=== PATIENT | female | born 1930 | race African-American/Black ===

== ENCOUNTER 2019-03-12 14:10 | Inpatient (IN) | payer BC, OTHER ==
[2019-03-12 14:16] VITALS: BMI 21.4
[2019-03-12 16:13] LABS: BASO % 0.9 % (0-2.0); EOS % 0.5 % (0-4.5); HEMATOCRIT 37.3 % (32.4-45.2); HEMOGLOBIN 12.4 GM/dL (10.7-15.3); LYMPH % 16.3 % (8-40); MCH 28.8 pg (25.7-33.7); MCHC 33.4 g/dl (32.0-36.0); MEAN CELL VOLUME 86.4 fl (80-96); MEAN PLT VOLUME 6.9 fl (7.5-11.1); MONO % 7.2 % (3.8-10.2); NEUT % 75.1 % (42.8-82.8); PLATELET COUNT 382 K/MM3 (134-434); RBC 4.31 M/mm3 (3.60-5.2); RDW 14.3 % (11.6-15.6); WHITE BLOOD COUNT 6.7 K/mm3 (4.0-10.0)
[2019-03-12 16:35] LABS: INR 1.04 (0.83-1.09); PROTHROMBIN TIME (PATIENT) 12.3 SEC (9.7-13.0)
[2019-03-12 16:38] LABS: ACTIVATED PTT 36.7 SECONDS (25.2-36.5)
--- NOTE | 2019-03-12 16:38 | PDOC ---
History of Present Illness - General History Source: Patient Exam Limitations: Clinical Condition - History of Present Illness Initial Comments: 03/12/19 16:34 Patient with no significant past medical history present with complaint of over 6 months history of growth to left breast which started as a small growth on the lateral aspect of left breast and has been getting bigger in the past 6 months. Patient reported started having mild pain in the beginning but has not had any pain while. Patient reported has not seen any doctor in over 30 years. Denies fevers, chills, weakness, cough, shortness of breath. Patient reports she has never followed up for the breast growth which has started to turned into ulcer for few months now as she was busy taking care of her family. Denies any other symptoms Timing/Duration: reports: other (6 months) <Nikko Mckenzie - Last Filed: 03/12/19 19:06> <Elizabeth Danielson - Last Filed: 03/12/19 22:18> - General Chief Complaint: Wound Stated Complaint: RT BREAST LYMPH Time Seen by Provider: 03/12/19 15:34 Past History - Past Medical History COPD: No - Psycho Social/Smoking Cessation Hx Smoking History: Current every day smoker Number of Cigarettes Smoked Daily: 5 Information on smoking cessation initiated: No <Nikko Mckenzie - Last Filed: 03/12/19 19:06> <Elizabeth Danielson - Last Filed: 03/12/19 22:18> - Past Medical History Allergies/Adverse Reactions: Allergies Allergy/AdvReac Type Severity Reaction Status Date / Time No Known Allergies Allergy Verified 03/12/19 14:16 Home Medications: Ambulatory Orders NK [No Known Home Medication] 03/12/19 Review of Systems - Review of Systems Able to Perform ROS?: Yes Is the patient limited Latvian proficient: No Constitutional: No: Chills, Fever, Malaise HEENTM: No: Symptoms Reported, See HPI, Eye Pain, Blurred Vision, Tearing, Recent change in vision, Double Vision, Cataracts, Ear Pain, Ocular Prothesis, Ear Discharge, Nose Pain, Nose Congestion, Tinnitus, Nose Bleeding, Hearing Loss , Throat Pain, Throat Swelling, Mouth Pain, Dental Problems, Difficulty Swallowing, Mouth Swelling, Other Respiratory: No: Symptoms reported, See HPI, Cough, Orthopnea, Shortness of Breath, SOB with Exertion, SOB at Rest, Stridor, Wheezing, Productive cough, Hemoptysis, Other Cardiac (ROS): No: Symptoms Reported, See HPI, Chest Pain, Edema, Irregular Heart Rate, Lightheadedness, Palpitations, Syncope, Chest Tightness, Other ABD/GI: No: Symptoms Reported, Nausea, Vomiting Musculoskeletal: Yes: Symptoms Reported, See HPI. No: Muscle Pain (left breast) Integumentary: Yes: Symptoms Reported, See HPI, Erythema (left breast), Lumps ( left breast) Neurological: No: Symptoms reported, Dizziness All Other Systems: Reviewed and Negative <Nikko Mckenzie - Last Filed: 03/12/19 19:06> *Physical Exam - Vital Signs Last Vital Signs Temp Pulse Resp BP Pulse Ox 98.8 F 124 H 18 157/76 98 03/12/19 14:12 03/12/19 14:12 03/12/19 14:12 03/12/19 14:12 03/12/19 14:12 - Physical Exam General Appearance: Yes: Nourished, Appropriately Dressed. No: Apparent Distress <Nikko Mckenzie - Last Filed: 03/12/19 19:06> - Vital Signs Last Vital Signs Temp Pulse Resp BP Pulse Ox 97.4 F L 80 18 142/59 L 98 03/12/19 19:32 03/12/19 19:32 03/12/19 19:32 03/12/19 19:32 03/12/19 19:32 <Elizabeth Danielson Erumsammiregina - Last Filed: 03/12/19 22:18> ED Treatment Course - LABORATORY CBC & Chemistry Diagram: 03/12/19 15:40 03/12/19 15:40 - ADDITIONAL ORDERS Additional order review: 03/12/19 15:40 RBC 4.31 MCV 86.4 MCHC 33.4 RDW 14.3 MPV 6.9 L Neutrophils % 75.1 Lymphocytes % 16.3 Monocytes % 7.2 Eosinophils % 0.5 Basophils % 0.9 - RADIOLOGY Radiology Studies Ordered: Category Date Time Status BREAST US LEFT LIMITED [US] Stat Ultrasound 03/12/19 16:05 Ordered <Nikko Mckenzie - Last Filed: 03/12/19 19:06> - LABORATORY CBC & Chemistry Diagram: 03/12/19 15:40 03/12/19 15:40 - ADDITIONAL ORDERS Additional order review: Laboratory Results 03/12/19 03/12/19 03/12/19 16:30 15:40 15:40 PT with INR 12.30 INR 1.04 PTT (Actin FS) 36.7 H Sodium Potassium Chloride Carbon Dioxide Anion Gap BUN Creatinine Est GFR (CKD-EPI)AfAm Est GFR (CKD-EPI)NonAf Random Glucose Lactic Acid 0.9 Calcium Total Bilirubin AST ALT Alkaline Phosphatase Total Protein Albumin Urine Color Yellow Urine Appearance Clear Urine pH 5.5 Ur Specific [place] 1.007 L Urine Protein Negative Urine Glucose (UA) Negative Urine Ketones Negative Urine Blood 1+ H Urine Nitrite Negative Urine Bilirubin Negative Urine Urobilinogen 0.2 Ur Leukocyte Esterase Negative Urine WBC (Auto) 1 Urine RBC (Auto) 4 Urine Casts (Auto) 1 U Epithel Cells (Auto) 0.4 Urine Bacteria (Auto) 8.9 03/12/19 15:40 PT with INR INR PTT (Actin FS) Sodium 139 Potassium 3.7 Chloride 105 Carbon Dioxide 28 Anion Gap 6 L BUN 9.1 Creatinine 0.6 Est GFR (CKD-EPI)AfAm 95.66 Est GFR (CKD-EPI)NonAf 82.53 Random Glucose 91 Lactic Acid Calcium 9.4 Total Bilirubin 0.4 AST 23 ALT 22 Alkaline Phosphatase 117 Total Protein 7.8 Albumin 3.9 Urine Color Urine Appearance Urine pH Ur Specific [place] Urine Protein Urine Glucose (UA) Urine Ketones Urine Blood Urine Nitrite Urine Bilirubin Urine Urobilinogen Ur Leukocyte Esterase Urine WBC (Auto) Urine RBC (Auto) Urine Casts (Auto) U Epithel Cells (Auto) Urine Bacteria (Auto) 03/12/19 15:40 RBC 4.31 MCV 86.4 MCHC 33.4 RDW 14.3 MPV 6.9 L Neutrophils % 75.1 Lymphocytes % 16.3 Monocytes % 7.2 Eosinophils % 0.5 Basophils % 0.9 <Elizabeth Danielson - Last Filed: 03/12/19 22:18> Medical Decision Making - Medical Decision Making 03/12/19 16:35 Patient with no significant past medical history present with complaint of over 6 months history of growth to left breast which started as a small growth on the lateral aspect of left breast and has been getting bigger in the past 6 months. Patient reported started having mild pain in the beginning but has not had any pain while. Patient reported has not seen any doctor in over 30 years. Denies fevers, chills, weakness, cough, shortness of breath. Patient reports she has never followed up for the breast growth which has started to turned into ulcer for few months now as she was busy taking care of her family. Denies any other symptoms Exam significant for 6 cm meter by 7 cm mass to left upper outer quadrant of left breast with 9 cm x 9 similar hard induration with enlarged left breast compared to right breast with multiple areas of skin erythema. Mass ulcerated with necrotic necrotic tissue to left breast. No active discharge or bleeding from site. Symptoms likely breast mass suspicious for go cancer. Patient tachycardic to 124. Will do septic work-up and left breast ultrasound. Will likely admit patient to hospital for work-up of cancer. <Nikko Mckenzie - Last Filed: 03/12/19 19:06> - Medical Decision Making agree with RAMSES Mckenzie with workup, HPI/Physical exam reviewed the note in its entirety I also eval the patient at bedside, VS notable for tachy, no fever, no systemic findings left breast mass x 6-8 months, not seen PCP in long time. 9x9 cm firm immobile mass at 1-2 oclock position of left breast overlying irregular ulcerative mass and very malodorous ultrasound suspicion for malignancy, will need biopsy/excision and surgical eval admission recommended, as possibly with superimposed infection as well 03/12/19 22:16 <Elizabeth Danielson - Last Filed: 03/12/19 22:18> Discharge - Discharge Information Problems reviewed: Yes - Admission Yes <Nikko Mckenzie - Last Filed: 03/12/19 19:06> <Elizabeth Danielson - Last Filed: 03/12/19 22:18> - Discharge Information Clinical Impression/Diagnosis: Left breast mass Condition: Stable
[2019-03-12 16:42] LABS: ALBUMIN 3.9 g/dl (3.4-5.0); BILIRUBIN,TOTAL 0.4 mg/dL (0.2-1); BLOOD UREA NITROGEN 9.1 mg/dL (7-18); CALCIUM 9.4 mg/dL (8.5-10.1); CREATININE 0.6 mg/dL (0.55-1.3); POTASSIUM 3.7 mmol/L (3.5-5.1); TOT PROT 7.8 g/dl (6.4-8.2)
[2019-03-12 17:50] LABS: EPI CELLS 0.4 /HPF (0-5/HPF); HYALINE CASTS 1 /lpf (0-8); PH,URINE 5.5 (5.0-8.0); URINE APPEARANCE CLEAR; URINE BACTERIA 8.9 /hpf (NEGATIVE); URINE BILIRUBIN NEGATIVE (NEGATIVE); URINE COLOR YELLOW; URINE GLUCOSE (UA) NEGATIVE (NEGATIVE); URINE KETONE NEGATIVE (NEGATIVE); URINE LEUK ESTERASE NEGATIVE (NEGATIVE); URINE NITRITE NEGATIVE (NEGATIVE); URINE PROTEIN NEGATIVE (NEGATIVE); URINE RBC 4 /hpf (0-4); URINE UROBILINOGEN 0.2 mg/dL (0.2-1.0); URINE WBC 1 /hpf (0-5)
--- NOTE | 2019-03-12 20:25 | HP ---
CHIEF COMPLAINT: Left breast mass in LUQ first noticed 7 months ago PCP: None HISTORY OF PRESENT ILLNESS: This is an 88 year old female with no significant PMH (has not seen a physician in 30 years). She presented to the ER with complaints of a left breast mass in LUQ first noticed 7 months ago. There was no inciting trauma or infection, she reports feeling a small lump that was not visible and gradually grew in size over the next few months. The mass became visible 4 month ago, and over the past 2 months has been growing more rapidly. She presented to the ER today after her daughter noticed an odor from the patient, after which she told her daughter about the mass. There has been no associated discharge, bleeding, rash , or nipple inversion. She reports some occasional fleeting, shooting pain in her breast shortly after eating, which resolves after belching. She denies fevers, chills, palpitations, chest pain, SOB, nausea, vomiting, diarrhea, constipation, dysuira, hematuria, or urgency. ER course was notable for: (1) US Breast: BI RADS category 5, biopsy suggested (2) BP 142/59 (3) UA +1 Blood Recent Travel: Denies PAST MEDICAL HISTORY: None PAST SURGICAL HISTORY: C- Sections x4 last one over 40 years ago Left ovary removed over 40 years ago Family Hx: Daughter had breast CA Social History: Smokin-4 cigarettes per day for 15 years Alcohol: denies Drugs: denies Allergies No Known Allergies Allergy (Verified 03/12/19 14:16) HOME MEDICATIONS: Home Medications Medication Instructions Recorded NK [No Known Home Medication] 03/12/19 REVIEW OF SYSTEMS CONSTITUTIONAL: Absent: fever, chills, diaphoresis, generalized weakness, malaise, loss of appetite, weight change HEENT: Absent: rhinorrhea, nasal congestion, throat pain, throat swelling, difficulty swallowing, mouth swelling, ear pain, eye pain, visual changes CARDIOVASCULAR: Absent: chest pain, syncope, palpitations, irregular heart rate, lightheadedness , peripheral edema RESPIRATORY: Absent: cough, shortness of breath, dyspnea with exertion, orthopnea, wheezing, stridor, hemoptysis GASTROINTESTINAL: Absent: abdominal pain, abdominal distension, nausea, vomiting, diarrhea, constipation, melena, hematochezia GENITOURINARY: Absent: dysuria, frequency, urgency, hesitancy, hematuria, flank pain, genital pain MUSCULOSKELETAL: Absent: myalgia, arthralgia, joint swelling, back pain, neck pain SKIN: Absent: rash, itching, pallor HEMATOLOGIC/IMMUNOLOGIC: Absent: easy bleeding, easy bruising, lymphadenopathy, frequent infections ENDOCRINE: Absent: unexplained weight gain, unexplained weight loss, heat intolerance, cold intolerance NEUROLOGIC: Absent: headache, focal weakness or paresthesias, dizziness, unsteady gait, seizure, mental status changes, bladder or bowel incontinence PSYCHIATRIC: Absent: anxiety, depression, suicidal or homicidal ideation, hallucinations. PHYSICAL EXAMINATION Vital Signs - 24 hr 03/12/19 03/12/19 03/12/19 14:12 15:45 16:36 Temperature 98.8 F 98.2 F Pulse Rate 124 H Pulse Rate [ Right Radial] Respiratory 18 Rate Blood Pressure 157/76 Blood Pressure [Right Arm] O2 Sat by Pulse 98 98 Oximetry (%) 03/12/19 19:32 Temperature 97.4 F L Pulse Rate Pulse Rate [ 80 Right Radial] Respiratory 18 Rate Blood Pressure Blood Pressure 142/59 L [Right Arm] O2 Sat by Pulse 98 Oximetry (%) GENERAL: AOx3 HEAD: Normal with no signs of trauma. EYES: Pupils equal, round and reactive to light, extraocular movements intact, sclera anicteric, conjunctiva clear. No lid lag. EARS, NOSE, THROAT: Ears normal, nares patent, oropharynx clear without exudates. Moist mucous membranes. NECK: Normal range of motion, supple without lymphadenopathy, JVD, or masses. LUNGS: Breath sounds equal, clear to auscultation bilaterally. No wheezes, and no crackles. No accessory muscle use. HEART: Regular rate and rhythm, normal S1 and S2 without murmur, rub or gallop. ABDOMEN: Soft, nontender, not distended, normoactive bowel sounds, no guarding, no rebound, no masses. No hepatomegaly or splenomegaly. MUSCULOSKELETAL: Normal range of motion at all joints. No bony deformities or tenderness. No CVA tenderness. UPPER EXTREMITIES: 2+ pulses, warm, well-perfused. No cyanosis. No clubbing. No peripheral edema. LOWER EXTREMITIES: 2+ pulses, warm, well-perfused. No calf tenderness. No peripheral edema. NEUROLOGICAL: Cranial nerves II-XII intact. Normal speech. Normal gait. PSYCHIATRIC: Cooperative. Good eye contact. Appropriate mood and affect. SKIN: Left breast enlarged with a 6x7 cm fungating, ulcerative, and necrotic LUQ mass with 9x9 cm erythematic, hard induration. No active discharge or bleeding from site. No axillary or supraclavicular lymphadenopathy noted Laboratory Results - last 24 hr 03/12/19 03/12/19 03/12/19 15:40 15:40 15:40 WBC 6.7 RBC 4.31 Hgb 12.4 Hct 37.3 MCV 86.4 MCH 28.8 MCHC 33.4 RDW 14.3 Plt Count 382 MPV 6.9 L Absolute Neuts (auto) 5.0 Neutrophils % 75.1 Lymphocytes % 16.3 Monocytes % 7.2 Eosinophils % 0.5 Basophils % 0.9 Nucleated RBC % 0 PT with INR 12.30 INR 1.04 PTT (Actin FS) 36.7 H Sodium 139 Potassium 3.7 Chloride 105 Carbon Dioxide 28 Anion Gap 6 L BUN 9.1 Creatinine 0.6 Est GFR (CKD-EPI)AfAm 95.66 Est GFR (CKD-EPI)NonAf 82.53 Random Glucose 91 Lactic Acid Calcium 9.4 Total Bilirubin 0.4 AST 23 ALT 22 Alkaline Phosphatase 117 Total Protein 7.8 Albumin 3.9 Urine Color Urine Appearance Urine pH Ur Specific [place] Urine Protein Urine Glucose (UA) Urine Ketones Urine Blood Urine Nitrite Urine Bilirubin Urine Urobilinogen Ur Leukocyte Esterase Urine WBC (Auto) Urine RBC (Auto) Urine Casts (Auto) U Epithel Cells (Auto) Urine Bacteria (Auto) 03/12/19 03/12/19 15:40 16:30 WBC RBC Hgb Hct MCV MCH MCHC RDW Plt Count MPV Absolute Neuts (auto) Neutrophils % Lymphocytes % Monocytes % Eosinophils % Basophils % Nucleated RBC % PT with INR INR PTT (Actin FS) Sodium Potassium Chloride Carbon Dioxide Anion Gap BUN Creatinine Est GFR (CKD-EPI)AfAm Est GFR (CKD-EPI)NonAf Random Glucose Lactic Acid 0.9 Calcium Total Bilirubin AST ALT Alkaline Phosphatase Total Protein Albumin Urine Color Yellow Urine Appearance Clear Urine pH 5.5 Ur Specific [place] 1.007 L Urine Protein Negative Urine Glucose (UA) Negative Urine Ketones Negative Urine Blood 1+ H Urine Nitrite Negative Urine Bilirubin Negative Urine Urobilinogen 0.2 Ur Leukocyte Esterase Negative Urine WBC (Auto) 1 Urine RBC (Auto) 4 Urine Casts (Auto) 1 U Epithel Cells (Auto) 0.4 Urine Bacteria (Auto) 8.9 ASSESSMENT/PLAN: 88F with no significant PMH (has not seen a physician in 30 years) presented to the ER with complaints of a left breast mass with fungating lesion in LUQ first noticed 7 months ago. Admitted for workup of likely Breast CA #Breast mass - Breast axilla US: Large solid left breast mass suspicious for malignancy BI RADS Category 5, suggestive of malignancy - Core biopsy ordered - Blood and urine cx ordered - Chest and abdomen CT: 1. Centrally necrotic L breast mass likely invading left pectoralis muscle 2. No evidence of disatant mets, Prominent mesentery of hepatic flexure, likely from 2/2 prominent vasculature 3. Diverticulosis - Surgery consult (Dr. Rico) for possible excision - Heme (Dr Merlos) and IR (Kd) Onc consultations ordered - CBC/CMP, Lipid panel, HbA1c, TSH, T4, Vit B12, Vit D ordered due to absence of recent records #HTN - 142/59, 140/90 - Started on Norvasc 5mg daily #Microscopic hematuria - UA +1 blood with 4 RBC - Patient asymptomatic, may repeat UA #FEN - Low Na diet #DVT - Lovenox Visit type - Emergency Visit Emergency Visit: Yes ED Registration Date: 03/12/19 Care time: The patient presented to the Emergency Department on the above date and was hospitalized for further evaluation of their emergent condition. - New Patient This patient is new to me today: Yes Date on this admission: 03/13/19 - Critical Care Critical Care patient: No ATTENDING PHYSICIAN STATEMENT I saw and evaluated the patient. I reviewed the resident's note and discussed the case with the resident. I agree with the resident's findings and plan as documented. SUBJECTIVE: OBJECTIVE: ASSESSMENT AND PLAN:
--- NOTE | 2019-03-12 21:43 | PN ---
Teaching Attending Note Name of Resident: Barry Sifuentse ATTENDING PHYSICIAN STATEMENT I saw and evaluated the patient. I reviewed the resident's note and discussed the case with the resident. I agree with the resident's findings and plan as documented. SUBJECTIVE: 88-year-old woman who does not follow with any doctors for many years presented with complaint of a Large fungating left breast lesion which she has had for several months however has neglected to seek medical attention. Denies any other Symptoms. OBJECTIVE: Last Vital Signs Temp Pulse Resp BP Pulse Ox 97.4 F L 80 18 142/59 L 98 03/12/19 19:32 03/12/19 19:32 03/12/19 19:32 03/12/19 19:32 03/12/19 19:32 GENERAL: Elderly, not in acute distress HEENT: Normocephalic, atraumatic. PERRLA, EOMI. No conjunctival pallor. Sclera are non- icteric. Moist mucous membranes. Oropharynx is clear. NECK: Supple. Full ROM. No JVD. Carotid pulses 2+ and symmetric, without bruits. No thyromegaly. No lymphadenopathy. CARDIOVASCULAR: Regular rate and rhythm. No murmurs, rubs, or gallops. Distal pulses are 2+ and symmetric. ChestDraining serosanguineous fluid, palpable left axillary lymph nodes PULMONARY: No evidence of respiratory distress. Lungs clear to auscultation bilaterally. No wheezing, rales or rhonchi. ABDOMINAL: Soft. Non-tender. Non-distended. No rebound or guarding. No organomegaly. Normoactive bowel sounds. MUSCULOSKELETAL Normal range of motion at all joints. No bony deformities or tenderness. No CVA tenderness. EXTREMITIES: No cyanosis. No clubbing. No edema. No calf tenderness. SKIN: Warm and dry. Normal capillary refill. No rashes. No jaundice. NEUROLOGICAL: PSYCHIATRIC: Cooperative. Good eye contact. Appropriate mood and affect. Imaging studies reviewed CT of chest, abdomen, pelvis with contrastlarge enhancing centrally necrotic left breast mass invading the skin and likely invading the left pectoralis muscle. Left axillary lymphadenopathy. No definitive evidence of distal mets. There is a prominence of the mesentery in the region of the hepatic flexure, likely secondary to prominent vascularity and less likely secondary to peritoneal carcinomatosis. Colonic diverticulosis. ASSESSMENT AND PLAN: 88-year-old woman with left breast mass and left axillary lymphadenopathy on CT of chest. Suspect likely malignancy however requires a biopsy for definitive diagnosis. Admit to [facility] for left breast mass biopsy Surgery evaluation for possible mass excision Heme-onc evaluation EKG #Hypertensionnot on any medications Start amlodipine 5 mg daily 2 g Sodium diet Lovenox for DVT prophylaxis
[2019-03-12] MEDS ORDERED: HEPARIN NA (PORCINE) 5,000 UNITS/ML 1ML VIAL SQ SCH (22:00)
[2019-03-12] MEDS ORDERED: HEPARIN NA (PORCINE) 5,000 UNITS/ML 1ML VIAL ONE (22:21)
[2019-03-13] MEDS ORDERED: ONDANSETRON 4 MG/2 ML VIAL IVPUSH PRN (04:29)
[2019-03-13] MEDS ORDERED: amLODIPine BESYLATE 5 MG TABLET (FP) PO SCH (10:00)
--- NOTE | 2019-03-13 10:01 | EKG ---
Test Reason : Blood Pressure : / mmHG Vent. Rate : 074 BPM Atrial Rate : 074 BPM P-R Int : 180 ms QRS Dur : 064 ms QT Int : 370 ms P-R-T Axes : 070 013 043 degrees QTc Int : 410 ms NORMAL SINUS RHYTHM WITH SINUS ARRHYTHMIA NORMAL ECG NO PREVIOUS ECGS AVAILABLE Confirmed by TERESSA DAWN MD ([id number]) on 03/13/2019 10:01:19 AM Referred By: Confirmed By:TERESSA DAWN MD
[2019-03-13 10:55] LABS: BASO % 1.3 % (0-2.0); EOS % 1.7 % (0-4.5); HEMATOCRIT 39.8 % (32.4-45.2); HEMOGLOBIN 13.1 GM/dL (10.7-15.3); LYMPH % 18.8 % (8-40); MCH 28.5 pg (25.7-33.7); MCHC 32.8 g/dl (32.0-36.0); MEAN CELL VOLUME 86.8 fl (80-96); MEAN PLT VOLUME 6.9 fl (7.5-11.1); MONO % 7.8 % (3.8-10.2); NEUT % 70.4 % (42.8-82.8); PLATELET COUNT 365 K/MM3 (134-434); RBC 4.58 M/mm3 (3.60-5.2); RDW 14.4 % (11.6-15.6); WHITE BLOOD COUNT 5.9 K/mm3 (4.0-10.0)
[2019-03-13 11:22] LABS: ALBUMIN 3.6 g/dl (3.4-5.0); BILIRUBIN,TOTAL 0.2 mg/dL (0.2-1); BLOOD UREA NITROGEN 8.4 mg/dL (7-18); CREATININE 0.7 mg/dL (0.55-1.3); POTASSIUM 3.9 mmol/L (3.5-5.1); TOT PROT 7.5 g/dl (6.4-8.2)
[2019-03-13] MEDS ORDERED: HEPARIN NA (PORCINE) 5,000 UNITS/ML 1ML VIAL SQ SCH (14:00)
--- NOTE | 2019-03-13 14:20 | CONSULT ---
Consultation: REQUESTING PROVIDER: primary team Dr Barry Sifuentes CONSULT REQUEST: We have been asked to medically evaluate this patient for ( breast mass ). HISTORY OF PRESENT ILLNESS: This is an 88 year old female with no significant PMH (has not seen a physician in 30 years). She presented to the ER with complaints of a left breast mass in LUQ first noticed 7 months ago. There was no inciting trauma or infection, she reports feeling a small lump that was not visible and gradually grew in size over the next few months. The mass became visible 4 month ago, and over the past 2 months has been growing more rapidly. She presented to the ER today after her daughter noticed an odor from the patient, after which she told her daughter about the mass. There has been no associated discharge, bleeding, rash , or nipple inversion. She reports some occasional fleeting, shooting pain in her breast shortly after eating, which resolves after belching. She denies fevers, chills, palpitations, chest pain, SOB, nausea, vomiting, diarrhea, constipation, dysuira, hematuria, or urgency. no pmhx and no recent travel or sick contact PAST SURGICAL HISTORY: C- Sections x4 last one over 40 years ago Left ovary removed over 40 years ago Family Hx: Daughter had breast CA Social History: Smokin-4 cigarettes per day for 15 years Alcohol: denies Drugs: denies Allergies No Known Allergies Allergy (Verified 03/12/19 14:16) REVIEW OF SYSTEMS:breast mass with discharged and skin thicking around , no other symptomps, some time associated with sharp brief pain PHYSICAL EXAMINATION Vital Signs - 24 hr 03/12/19 03/12/19 03/12/19 15:45 16:36 19:32 Temperature 98.2 F 97.4 F L Pulse Rate Pulse Rate [ 80 Right Radial] Respiratory 18 Rate Blood Pressure Blood Pressure 142/59 L [Right Arm] O2 Sat by Pulse 98 98 Oximetry (%) 03/13/19 03/13/19 03/13/19 00:36 05:34 08:00 Temperature 98.3 F 97.7 F Pulse Rate 77 Pulse Rate [ 85 Right Radial] Respiratory 16 18 18 Rate Blood Pressure 125/46 L Blood Pressure 131/54 L [Right Arm] O2 Sat by Pulse 100 98 97 Oximetry (%) 03/13/19 03/13/19 08:42 09:00 Temperature 98.4 F Pulse Rate 97 H Pulse Rate [ Right Radial] Respiratory 18 18 Rate Blood Pressure 136/76 Blood Pressure [Right Arm] O2 Sat by Pulse 97 Oximetry (%) GENERAL: Awake, alert, and fully oriented, in no acute distress. HEAD: Normal with no signs of trauma. EYES: Pupils equal, round and reactive to light, extraocular movements intact, EARS, NOSE, THROAT: Moist mucous membranes. NECK: Normal range of motion, supple without lymphadenopathy, LUNGS: Breath sounds equal, clear to auscultation bilaterally. No wheezes, and no crackles. No accessory muscle use. HEART: Regular rate and rhythm, normal S1 and S2 without murmur, rub or gallop. ABDOMEN: Soft, nontender, not distended, normoactive bowel sounds, longtudinal surgical scar LOWER EXTREMITIES: 2+ pulses, warm, well-perfused. No calf tenderness. No peripheral edema. NEUROLOGICAL: no focal deficit , asymmetry in her smile likely due to poor dentition . Normal speech. PSYCHIATRIC: Cooperative. SKIN: Warm, dry, normal turgor, left breast mass 10x7cm with open wound and yelowish pinky discharged covered with gauze , thick skin , orange peel signs no lymphnodes enlarged palpated in neck , submanidibullat , axillary and inguinal area Laboratory Results - last 24 hr 03/12/19 03/12/19 03/12/19 15:40 15:40 15:40 WBC 6.7 RBC 4.31 Hgb 12.4 Hct 37.3 MCV 86.4 MCH 28.8 MCHC 33.4 RDW 14.3 Plt Count 382 MPV 6.9 L Absolute Neuts (auto) 5.0 Neutrophils % 75.1 Lymphocytes % 16.3 Monocytes % 7.2 Eosinophils % 0.5 Basophils % 0.9 Nucleated RBC % 0 PT with INR 12.30 INR 1.04 PTT (Actin FS) 36.7 H Sodium 139 Potassium 3.7 Chloride 105 Carbon Dioxide 28 Anion Gap 6 L BUN 9.1 Creatinine 0.6 Est GFR (CKD-EPI)AfAm 95.66 Est GFR (CKD-EPI)NonAf 82.53 POC Glucometer Random Glucose 91 Lactic Acid Calcium 9.4 Total Bilirubin 0.4 AST 23 ALT 22 Alkaline Phosphatase 117 Total Protein 7.8 Albumin 3.9 Vitamin D Level TSH Thyroxine (T4) Urine Color Urine Appearance Urine pH Ur Specific [place] Urine Protein Urine Glucose (UA) Urine Ketones Urine Blood Urine Nitrite Urine Bilirubin Urine Urobilinogen Ur Leukocyte Esterase Urine WBC (Auto) Urine RBC (Auto) Urine Casts (Auto) U Epithel Cells (Auto) Urine Bacteria (Auto) Blood Type Antibody Screen 03/12/19 03/12/19 03/13/19 15:40 16:30 05:08 WBC RBC Hgb Hct MCV MCH MCHC RDW Plt Count MPV Absolute Neuts (auto) Neutrophils % Lymphocytes % Monocytes % Eosinophils % Basophils % Nucleated RBC % PT with INR INR PTT (Actin FS) Sodium Potassium Chloride Carbon Dioxide Anion Gap BUN Creatinine Est GFR (CKD-EPI)AfAm Est GFR (CKD-EPI)NonAf POC Glucometer 91 Random Glucose Lactic Acid 0.9 Calcium Total Bilirubin AST ALT Alkaline Phosphatase Total Protein Albumin Vitamin D Level TSH Thyroxine (T4) Urine Color Yellow Urine Appearance Clear Urine pH 5.5 Ur Specific [place] 1.007 L Urine Protein Negative Urine Glucose (UA) Negative Urine Ketones Negative Urine Blood 1+ H Urine Nitrite Negative Urine Bilirubin Negative Urine Urobilinogen 0.2 Ur Leukocyte Esterase Negative Urine WBC (Auto) 1 Urine RBC (Auto) 4 Urine Casts (Auto) 1 U Epithel Cells (Auto) 0.4 Urine Bacteria (Auto) 8.9 Blood Type Antibody Screen 03/13/19 03/13/19 03/13/19 06:50 10:28 10:28 WBC RBC Hgb Hct MCV MCH MCHC RDW Plt Count MPV Absolute Neuts (auto) Neutrophils % Lymphocytes % Monocytes % Eosinophils % Basophils % Nucleated RBC % PT with INR INR PTT (Actin FS) Sodium Potassium Chloride Carbon Dioxide Anion Gap BUN Creatinine Est GFR (CKD-EPI)AfAm Est GFR (CKD-EPI)NonAf POC Glucometer 92 Random Glucose Lactic Acid Calcium Total Bilirubin AST ALT Alkaline Phosphatase Total Protein Albumin Vitamin D Level 16.7 L TSH 3.50 Thyroxine (T4) 6.8 Urine Color Urine Appearance Urine pH Ur Specific [place] Urine Protein Urine Glucose (UA) Urine Ketones Urine Blood Urine Nitrite Urine Bilirubin Urine Urobilinogen Ur Leukocyte Esterase Urine WBC (Auto) Urine RBC (Auto) Urine Casts (Auto) U Epithel Cells (Auto) Urine Bacteria (Auto) Blood Type Antibody Screen 03/13/19 03/13/19 03/13/19 10:28 10:28 10:28 WBC 5.9 RBC 4.58 Hgb 13.1 Hct 39.8 MCV 86.8 MCH 28.5 MCHC 32.8 RDW 14.4 Plt Count 365 MPV 6.9 L Absolute Neuts (auto) 4.1 Neutrophils % 70.4 Lymphocytes % 18.8 Monocytes % 7.8 Eosinophils % 1.7 D Basophils % 1.3 Nucleated RBC % 0 PT with INR INR PTT (Actin FS) Sodium 142 Potassium 3.9 Chloride 107 Carbon Dioxide 31 Anion Gap 4 L BUN 8.4 Creatinine 0.7 Est GFR (CKD-EPI)AfAm 90.93 Est GFR (CKD-EPI)NonAf 78.45 POC Glucometer Random Glucose 79 Lactic Acid Calcium 9.0 Total Bilirubin 0.2 AST 19 ALT 22 Alkaline Phosphatase 110 Total Protein 7.5 Albumin 3.6 Vitamin D Level TSH Thyroxine (T4) Urine Color Urine Appearance Urine pH Ur Specific [place] Urine Protein Urine Glucose (UA) Urine Ketones Urine Blood Urine Nitrite Urine Bilirubin Urine Urobilinogen Ur Leukocyte Esterase Urine WBC (Auto) Urine RBC (Auto) Urine Casts (Auto) U Epithel Cells (Auto) Urine Bacteria (Auto) Blood Type O POSITIVE Antibody Screen Negative 03/13/19 13:20 WBC RBC Hgb Hct MCV MCH MCHC RDW Plt Count MPV Absolute Neuts (auto) Neutrophils % Lymphocytes % Monocytes % Eosinophils % Basophils % Nucleated RBC % PT with INR INR PTT (Actin FS) Sodium Potassium Chloride Carbon Dioxide Anion Gap BUN Creatinine Est GFR (CKD-EPI)AfAm Est GFR (CKD-EPI)NonAf POC Glucometer Random Glucose Lactic Acid Calcium Total Bilirubin AST ALT Alkaline Phosphatase Total Protein Albumin Vitamin D Level TSH Thyroxine (T4) Urine Color Urine Appearance Urine pH Ur Specific [place] Urine Protein Urine Glucose (UA) Urine Ketones Urine Blood Urine Nitrite Urine Bilirubin Urine Urobilinogen Ur Leukocyte Esterase Urine WBC (Auto) Urine RBC (Auto) Urine Casts (Auto) U Epithel Cells (Auto) Urine Bacteria (Auto) Blood Type O POSITIVE Antibody Screen Active Medications Generic Name Dose Route Start Last Admin Trade Name Freq PRN Reason Stop Dose Admin Amlodipine Besylate 5 mg 03/13/19 10:00 03/13/19 09:25 Norvasc - PO 5 mg DAILY VEGA Administration Heparin Sodium (Porcine) 5,000 unit 03/13/19 14:00 Heparin - SQ TID [facility] CBC, BMP 03/13/19 10:28 03/13/19 10:28 IMPRESSION: Large solid left breast mass probably suspicious for malignancy. Core needle biopsy recommended. Additional bilateral mammography and ultrasonography also recommended. Please see above discussion. BI-RADS Category 5: Highly suggestive of malignancy-appropriate action should be taken. . ASSESSMENT/PLAN:pending discussion with Dr Merlos 88 year old female with no pmhx presented to Ed by her daughter due to 6 month history of left breast mass, that start bring bloody and yellowish discharged last 2 weeks, pt denies any weight loss or change in her apetite , denies any trauma or infection had history of fibroid removed and ove ovay resection she has 4 kids total 3 of them after fibroid removal her daughter had recurrent breast cancer left breast mass is 10x7 cm with open necrotic wound follow core needle biopsy consult breast surgeon follow up cx will need close follow up upon dc with oncology and surgery Ct A/P chest for mets evaluation wound care out pt Dispo: We will continue to follow the patient. Thank you for this consultative opportunity. Visit type - Emergency Visit Emergency Visit: Yes ED Registration Date: 03/12/19 Care time: The patient presented to the Emergency Department on the above date and was hospitalized for further evaluation of their emergent condition. - New Patient This patient is new to me today: Yes Date on this admission: 03/12/19 - Critical Care Critical Care patient: No ATTENDING PHYSICIAN STATEMENT I saw and evaluated the patient. I reviewed the resident's note and discussed the case with the resident. I agree with the resident's findings and plan as documented. SUBJECTIVE: OBJECTIVE: ASSESSMENT AND PLAN:
[2019-03-13 15:33] VITALS: BP 115/70; PULSE 93; TEMP 97.8
--- NOTE | 2019-03-13 17:17 | PN ---
Teaching Attending Note Name of Resident: Johnny Koch ATTENDING PHYSICIAN STATEMENT I saw and evaluated the patient. I reviewed the resident's note and discussed the case with the resident. I agree with the resident's findings and plan as documented. 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 Biopsy taken. Will follow up as out patient . For wound care follow up. OBJECTIVE: ASSESSMENT AND PLAN:
--- NOTE | 2019-03-13 17:40 | DS ---
Physical Exam: SUBJECTIVE: Patient seen and examined. Denies chest pain, abd pain, nausea, vomiting, SOB, fever, or chills. Patient states that the mass has bee growing but was waiting to come to the hospital. Spoke with patient and patient's family extensively on plan for the day. OBJECTIVE: Vital Signs Period Temp Pulse Resp BP Sys/Chance Pulse Ox Last 24 Hr 97.4 F-98.4 F 77-97 16-22 115-142/46-76 97-100 PHYSICAL EXAM GENERAL: The patient is awake, alert, and fully oriented, in no acute distress. HEAD: Normal with no signs of trauma. EYES: PERRL, EOMI, no scleral icterus ENT: oropharynx clear without exudates, moist mucous membranes. NECK: Trachea midline, supple. LUNGS: Breath sounds equal, clear to auscultation bilaterally, no wheezes, no crackles, no accessory muscle use. HEART: Regular rate and rhythm, S1, S2 without murmur, rub or gallop. ABDOMEN: Soft, nontender, nondistended, normoactive bowel sounds, no guarding, no rebound, no hepatosplenomegaly, no masses. EXTREMITIES: 2+ pulses, warm, well-perfused, no edema. NEUROLOGICAL: Normal speech, gait not observed. sensation grossly intact throughout PSYCH: Normal mood, normal affect. SKIN: Left breast enlarged with a 6x7 cm fungating, ulcerative, and necrotic LUQ mass with 9x9 cm erythematic, hard induration. No active discharge or bleeding from site. No axillary or supraclavicular lymphadenopathy noted LABS Laboratory Results - last 24 hr 03/12/19 03/13/19 03/13/19 16:30 05:08 06:50 WBC RBC Hgb Hct MCV MCH MCHC RDW Plt Count MPV Absolute Neuts (auto) Neutrophils % Lymphocytes % Monocytes % Eosinophils % Basophils % Nucleated RBC % Sodium Potassium Chloride Carbon Dioxide Anion Gap BUN Creatinine Est GFR (CKD-EPI)AfAm Est GFR (CKD-EPI)NonAf POC Glucometer 91 92 Random Glucose Calcium Total Bilirubin AST ALT Alkaline Phosphatase Total Protein Albumin Vitamin D Level TSH Thyroxine (T4) Urine Color Yellow Urine Appearance Clear Urine pH 5.5 Ur Specific [place] 1.007 L Urine Protein Negative Urine Glucose (UA) Negative Urine Ketones Negative Urine Blood 1+ H Urine Nitrite Negative Urine Bilirubin Negative Urine Urobilinogen 0.2 Ur Leukocyte Esterase Negative Urine WBC (Auto) 1 Urine RBC (Auto) 4 Urine Casts (Auto) 1 U Epithel Cells (Auto) 0.4 Urine Bacteria (Auto) 8.9 Blood Type Antibody Screen 03/13/19 03/13/19 03/13/19 10:28 10:28 10:28 WBC 5.9 RBC 4.58 Hgb 13.1 Hct 39.8 MCV 86.8 MCH 28.5 MCHC 32.8 RDW 14.4 Plt Count 365 MPV 6.9 L Absolute Neuts (auto) 4.1 Neutrophils % 70.4 Lymphocytes % 18.8 Monocytes % 7.8 Eosinophils % 1.7 D Basophils % 1.3 Nucleated RBC % 0 Sodium Potassium Chloride Carbon Dioxide Anion Gap BUN Creatinine Est GFR (CKD-EPI)AfAm Est GFR (CKD-EPI)NonAf POC Glucometer Random Glucose Calcium Total Bilirubin AST ALT Alkaline Phosphatase Total Protein Albumin Vitamin D Level 16.7 L TSH 3.50 Thyroxine (T4) 6.8 Urine Color Urine Appearance Urine pH Ur Specific [place] Urine Protein Urine Glucose (UA) Urine Ketones Urine Blood Urine Nitrite Urine Bilirubin Urine Urobilinogen Ur Leukocyte Esterase Urine WBC (Auto) Urine RBC (Auto) Urine Casts (Auto) U Epithel Cells (Auto) Urine Bacteria (Auto) Blood Type Antibody Screen 03/13/19 03/13/19 03/13/19 10:28 10:28 13:20 WBC RBC Hgb Hct MCV MCH MCHC RDW Plt Count MPV Absolute Neuts (auto) Neutrophils % Lymphocytes % Monocytes % Eosinophils % Basophils % Nucleated RBC % Sodium 142 Potassium 3.9 Chloride 107 Carbon Dioxide 31 Anion Gap 4 L BUN 8.4 Creatinine 0.7 Est GFR (CKD-EPI)AfAm 90.93 Est GFR (CKD-EPI)NonAf 78.45 POC Glucometer Random Glucose 79 Calcium 9.0 Total Bilirubin 0.2 AST 19 ALT 22 Alkaline Phosphatase 110 Total Protein 7.5 Albumin 3.6 Vitamin D Level TSH Thyroxine (T4) Urine Color Urine Appearance Urine pH Ur Specific [place] Urine Protein Urine Glucose (UA) Urine Ketones Urine Blood Urine Nitrite Urine Bilirubin Urine Urobilinogen Ur Leukocyte Esterase Urine WBC (Auto) Urine RBC (Auto) Urine Casts (Auto) U Epithel Cells (Auto) Urine Bacteria (Auto) Blood Type O POSITIVE O POSITIVE Antibody Screen Negative HOSPITAL COURSE: Date of Admission:03/12/19 Date of Discharge: 03/13/19 88 y/o/f with no significant PMHx (has not seen a physician in 30 years) presented to the ER with complaints of a left breast mass with fungating lesion in LUQ first noticed 7 months ago. Patient was admitted for workup of breast mass. Imaging on CT showed a large solid left breast mass probably suspicious for malignancy. BI-RADS Category 5: Highly suggestive of malignancy. Core biopsy was completed under U/S guidance. No evidence of distant mets was seen on CT. Patient was seen by Heme/Onc and will follow up outpatient for further workup. Appointment made for follow up with Dr. Eaton, breast surgeon, and for wound care. Patient found to be hypertensive on admission and started on Norvasc 5mg daily. Vitamin D levels low on admission, ordered prescription for Vitamin D supplements. Patient to follow up with Heme/Onc, Breast Surgeon, and wound care after discharge. Minutes to complete discharge: 36 Discharge Summary Problems reviewed: Yes Reason For Visit: MASS ON LEFT BREAST Current Active Problems Left breast mass (Acute) Condition: Stable - Instructions Diet, Activity, Other Instructions: You presented to the hospital due to a mass on your left breast that has been growing for the last few months. Imaging showed a large solid left breast mass that is suspicious for malignancy. You had a biopsy performed of your breast mass. You were seen by hematology/oncology and will need to follow up with them outpatient for further recommendations on management and workup of your breast mass. Your blood pressure was elevated on admission and you were started on a blood pressure medication. We have arranged appointments for you with Dr. Eaton, breast surgeon, and Dr. Lerma for wound care as mentioned below. Medication Changes: 1. START taking Norvasc 5mg daily for better control of your blood pressure. 2. START taking Vitamin D once weekly for 6 weeks as your Vitamin D levels were low on this admission. Follow up with the following physicians: 1. You said that you do not have a primary care provider. A referral has been provided for you for the [facility], please follow up in 3-5 days for further management of your medical conditions and to discuss the medications that were started while you were in the hospital. 2. Recommended to follow up with Dr. Merlos, Hematology/Oncology, within one week for further recommendation on treatment and management of your breast mass. 3. We have scheduled an appointment for you to follow up with Dr. Eaton, a specialist in breast surgery, for further management of your breast mass. Your appointment has been scheduled for March 19 at 3:30pm. Please call Dr. Eaton's office to confirm the appointment as the office needs further information from you. 4. We have scheduled an appointment for you to follow up with Dr. Lerma at the wound care center in the hospital on the 5th floor on MondayMarch 15 at 12pm for further care of your breast mass. Activity and Diet 1. You are being discharged home, please take care to follow up with the above mentioned doctors for treatment of your breast mass and medical conditions. 2. Follow these steps to clean your wound: Put on a new pair of non-sterile gloves. Use a clean, soft washcloth to gently clean your wound with warm water and soap. Your wound should not bleed much when you are cleaning it. A small amount of blood is OK. Rinse your wound with water. Gently pat it dry with a clean towel. DO NOT rub it dry. In some cases, you can even rinse the wound while showering. Check the wound for increased redness, swelling, or a bad odor. Pay attention to the color and amount of drainage from your wound. Look for drainage that has become darker or thicker. After cleaning your wound, remove your gloves and put them in the plastic bag with the old dressing and gloves. Wash your hands again. Place dry and clean gauze to the area to keep the wound clean until you clean it again in 24 hours. Continue all your other medications as prescribed. Please return to the ER if you have any signs or symptoms of chest pain, shortness of breath, uncontrollable fever, chills, nausea, vomiting, numbness, tingling, or weakness in any part of your body, changes in vision, or slurred speech. Please return to the ER if symptoms persist, worsen, or new symptoms arise. Referrals: [facility] [place] [facility] [place] [Provider Group] - 1 Week Marito Eaton MD [Staff Physician] - Yovani Lerma DO [Staff Physician] - Carroll Merlos MD [Staff Physician] - 1 Week Disposition: HOME - Home Medications Comprehensive Discharge Medication List: Ambulatory Orders Amlodipine Besylate [Norvasc -] 5 mg PO DAILY 30 Days #30 tablet 03/13/19 Ergocalciferol (Vitamin D2) [Vitamin D2] 50,000 unit PO WEEKLY #6 capsule This patient is new to me today: Yes Date on this admission: 03/22/19 Emergency Visit: Yes ED Registration Date: 03/12/19 Care time: The patient presented to the Emergency Department on the above date and was hospitalized for further evaluation of their emergent condition. Critical Care patient: No - Discharge Referral Referred to [facility] No ATTENDING PHYSICIAN STATEMENT I saw and evaluated the patient. I reviewed the resident's note and discussed the case with the resident. I agree with the resident's findings and plan as documented. SUBJECTIVE: OBJECTIVE: ASSESSMENT AND PLAN:
--- NOTE | 2019-03-13 18:24 | PN ---
Teaching Attending Note Name of Resident: Schuyler Mcclelland ATTENDING PHYSICIAN STATEMENT I saw and evaluated the patient. I reviewed the resident's note and discussed the case with the resident. I agree with the resident's findings and plan as documented. SUBJECTIVE: Feels well. No constitutional symptoms - lethargy, tiredness, fever. chills, nausea, vomiting. OBJECTIVE: Afebrile, Hemodynamically Stable. Last Vital Signs Temp Pulse Resp BP Pulse Ox 97.8 F 93 H 22 H 115/70 97 03/13/19 12:00 03/13/19 12:00 03/13/19 12:00 03/13/19 12:00 03/13/19 09:00 HEENT - Atrauamatic, Normocephalic. Heart- S1, S2, RRR Lungs - clear to auscultation Breast - large L fungating mass with malodor Abdomen - Soft, non-tender. Bowel Sounds normal. Extremities - no edema, no calf tenderness. Laboratory Results - last 24 hr 03/13/19 03/13/19 03/13/19 05:08 06:50 10:28 WBC RBC Hgb Hct MCV MCH MCHC RDW Plt Count MPV Absolute Neuts (auto) Neutrophils % Lymphocytes % Monocytes % Eosinophils % Basophils % Nucleated RBC % Sodium Potassium Chloride Carbon Dioxide Anion Gap BUN Creatinine Est GFR (CKD-EPI)AfAm Est GFR (CKD-EPI)NonAf POC Glucometer 91 92 Random Glucose Calcium Total Bilirubin AST ALT Alkaline Phosphatase Total Protein Albumin Vitamin D Level 16.7 L TSH Thyroxine (T4) Blood Type Antibody Screen 03/13/19 03/13/19 03/13/19 10:28 10:28 10:28 WBC 5.9 RBC 4.58 Hgb 13.1 Hct 39.8 MCV 86.8 MCH 28.5 MCHC 32.8 RDW 14.4 Plt Count 365 MPV 6.9 L Absolute Neuts (auto) 4.1 Neutrophils % 70.4 Lymphocytes % 18.8 Monocytes % 7.8 Eosinophils % 1.7 D Basophils % 1.3 Nucleated RBC % 0 Sodium Potassium Chloride Carbon Dioxide Anion Gap BUN Creatinine Est GFR (CKD-EPI)AfAm Est GFR (CKD-EPI)NonAf POC Glucometer Random Glucose Calcium Total Bilirubin AST ALT Alkaline Phosphatase Total Protein Albumin Vitamin D Level TSH 3.50 Thyroxine (T4) 6.8 Blood Type O POSITIVE Antibody Screen Negative 03/13/19 03/13/19 10:28 13:20 WBC RBC Hgb Hct MCV MCH MCHC RDW Plt Count MPV Absolute Neuts (auto) Neutrophils % Lymphocytes % Monocytes % Eosinophils % Basophils % Nucleated RBC % Sodium 142 Potassium 3.9 Chloride 107 Carbon Dioxide 31 Anion Gap 4 L BUN 8.4 Creatinine 0.7 Est GFR (CKD-EPI)AfAm 90.93 Est GFR (CKD-EPI)NonAf 78.45 POC Glucometer Random Glucose 79 Calcium 9.0 Total Bilirubin 0.2 AST 19 ALT 22 Alkaline Phosphatase 110 Total Protein 7.5 Albumin 3.6 Vitamin D Level TSH Thyroxine (T4) Blood Type O POSITIVE Antibody Screen Discharge Medications Medication Instructions Recorded Amlodipine Besylate [Norvasc -] 5 mg PO DAILY 30 Days #30 tablet 03/13/19 Ergocalciferol (Vitamin D2) 50,000 unit PO WEEKLY #6 capsule 03/13/19 [Vitamin D2] ASSESSMENT AND PLAN: 88 year old female with large fungating left breast lesion, neglected for months , presented to ED. Denies any other symptoms. 1. Large Left Breast Mass - fungating, likely progressive Breast Ca s/p Biopsy today CT C/A/P - prelim report: large enhancing centrally necrotic left breast mass invading the skin and likely invading the left pectoralis muscle. Left axillary lymphadenopathy. No definitive evidence of distal mets. There is a prominence of the mesentery in the region of the hepatic flexure, likely secondary to prominent vascularity and less likely secondary to peritoneal carcinomatosis. Colonic diverticulosis. Evaluated by Oncology - for out-patient follow up and coordination of care with Oncology and Breast Surgery. 2. HTN - Started on Norvasc 5mg. Medically stable for discharge with out-patient follow up.
[2019-03-13] MEDS ORDERED: metroNIDAZOLE 0.75% TOPICAL GEL 45 GM TUBE TP SCH (22:00)
--- NOTE | 2019-03-14 09:44 | CONS ---
DATE OF CONSULTATION: 03/13/2019 HISTORY: This is an 88-year-old female who entered via the emergency room. She does not frequent doctors for greater than 30 years. She is on no medication except some multivitamins. She presents with a left breast with a mass measuring greater than 10 cm with skin changes and erythema. In addition, there is a tumor nodule, which is necrotic, malodorous measuring 7 x 5 cm. There are no definite axillary nodes. The right breast is without dominant masses. In the emergency room, the patient underwent a biopsy the results of which are pending. The chemistries reveal a relatively normal chemistries, normal calcium, normal liver function tests. The vitamin D level is low at 16. The CBC reveals a hematocrit of 39.8, a platelet of 365, a hemoglobin of 13.1. Patient underwent CAT scan evaluation chest, abdomen, and pelvis the results of which are pending. PAST HISTORY: [employer]; the patient is a 7, para 6 with 1 miscarriage. First age 21. Last at 43. Patient had section x4. Patient had normal periods growing up. She took control pills for about 6 years. The patient states she noted a breast lump greater than 6 months ago but was somewhat embarrassed to discuss it with her family or seek medical attention. The patient has no history of hypertension, diabetes, [place], thyroid disease, kidney disease, hepatitis. FAMILY HISTORY: Significant for a brother with colon cancer, 4 cousins with breast cancer, 1 cousin in additional to breast cancer has ovarian cancer. The daughter also has breast cancer. PAST SURGICAL HISTORY: The patient had fibroid surgery years ago. PHYSICAL EXAMINATION: Vital Signs: BP 115/70, pulse 93, respiratory rate 22, afebrile. HEENT: RETA. EOM intact. Oropharynx unremarkable. Neck: No cervical or supraclavicular axillary nodes. Lungs: Clear to P and A. Cardiac: RSR. Breasts: Right breast free of disease. Left breast, large 10-cm or greater tumor with skin changes of erythema, edema of the breast, and tumor nodule measuring 7.5. Abdomen: Soft. No organomegaly or masses. Extremities: No significant edema. LABORATORY: WBC 5.9, hematocrit 39.8, platelets 365, 70 polys, 19 lymphocytes, 8 monocytes. INR 1.04, PTT 36.7. Chemistries; 142 sodium, K 3.9, chloride 107, CO2 is 31, BUN 8.4, creatinine 0.7. GFR 90. Bilirubin 0.2, AST 19, ALT 22, alkaline phosphatase 110, protein 7.5, albumin 3.6, vitamin D 16.7, TSH 3.5. IMPRESSION: Neglected breast cancer in an 88-year-old female with strong family history with 4 cousins with breast cancer, 1 cousin also has ovarian cancer, 1 daughter also with a history of breast cancer. The patient underwent biopsies the results of which are pending. She will need to be seen in wound care. Based upon the biopsy results, further recommendations. I have discussed treatment approach with the patient and family, but biopsy will need be awaited. Metronidazole cream to the breast as well. Wound care follow up. LEONIDAS SOUZA M.D. [id number]
--- NOTE | 2019-03-15 13:06 | PATH ---
Surgical Pathology Report Patient Name: JERICHO CHRISTINA [facility]. Rec. #: [id number] /Age/Gender: 1930 (Age: 88) / F Account: [id number] Location: EMERGENCY ROOM Taken: 03/13/2019 Received: 03/13/2019 Reported: 03/15/2019 Physicians: Rekha Mai M.D. MD Carroll Alcantara M.D. Andrew Ashikari, M.D. 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 Results of ER and FL studies performed at [place], [place] ([id number]) are as follows: ER (clone [id number] mouse monoclonal antibody by [employer]): 30% nuclear staining with strong to moderate intensity (Positive). FL (clone16 mouse monoclonal antibody by [employer]): 0% nuclear staining (Negative). Results of Her2 (IHC) & Ki-67 studies performed at [place], [place] ([id number]) are as follows: Her2 IHC (EP3 from [employer], formerly known as [id number], using [employer] Polymer Refine detection kit): 1+ (Negative) Ki-67: Up to 40% (High proliferative index) Positive and negative controls (internal if applicable) show appropriate results. Positive and negative controls (internal if applicable) show appropriate results. Formalin fixation and cold ischemic times are within current ASCO/CAP recommendations for ER, FL and Her2 testing. Comment: Immunohistochemical stains performed at [place], [place] ([id number]) and interpreted at [facility] show the following results: Immunostains for p40 and smooth muscle myosin heavy chain show loss of the myoepithelial cell layer. The neoplastic cells stain with [place]-3, but do not stain with mammaglobin. These results, in combination with the other immunohistochemical results, histologic findings, and clinical findings are consistent with primary breast carcinoma. This case was initially discussed with Dr. Merlos at 1:30 PM on March 14, 2019. Electronically Signed Tomas Rosales M.D. Gross Description Received in formalin labeled "left breast 1:00," are 3 hill-yellow, cylindrical portions of fibroadipose tissue ranging from 0.8-1.3 cm in length and averaging 0.1 cm in diameter. The specimens are submitted in toto in one cassette. Time to formalin fixation: Less than one minute Total formalin fixation time: Approximately 7 hours. 03/13/2019 [facility]03/13/2019
== END 2019-03-13 18:13 | disposition home or self-care (01) | DRG 599 ==
LOC: JER 14:10 → JERBED 17:29
PROVIDERS: ADMIT Internal Medicine
PROC: 0H9U3ZX Drainage of Left Breast, Percutaneous Approach, Diagnostic (ICD-10-PCS; principal; 2019-03-13)
DX: C50.812 Malignant neoplasm of overlapping sites of left female breast (principal); I10 Essential (primary) hypertension; K57.90 Diverticulosis of intestine, part unspecified, without perforation or abscess without bleeding; R31.9 Hematuria, unspecified
CPT/HCPCS: 19083; 36415; 71260-TC; 74177-TC; 76642-TC-LT; 80053; 81003; 82306; 82962; 83605; 84436; 84443; 85025; 85610; 85730; 86850; 86900; 86901; 87040; 87086; 87899; 88305-TC; 93005; 93010; 99285-25; A4648; J1644

== ENCOUNTER 2020-04-30 07:45 | Day surgery (SDC) | payer BC ==
[2020-04-30] MEDS ORDERED: ZOLEDRONIC ACID/MAN/WATER 5 MG/100 ML INFUS..BTL IVPB ONE (10:00)
[2020-04-30 15:11] LABS: BASO % 0.8 % (0-2.0); EOS % 3.2 % (0-4.5); HEMATOCRIT 33.4 % (32.4-45.2); HEMOGLOBIN 11.2 GM/dL (10.7-15.3); LYMPH % 25.5 % (8-40); MCH 29.1 pg (25.7-33.7); MCHC 33.6 g/dl (32.0-36.0); MEAN CELL VOLUME 86.5 fl (80-96); MEAN PLT VOLUME 7.3 fl (7.5-11.1); MONO % 10.3 % (3.8-10.2); NEUT % 60.2 % (42.8-82.8); PLATELET COUNT 262 K/MM3 (134-434); RBC 3.86 M/mm3 (3.60-5.2); RDW 15.2 % (11.6-15.6); WHITE BLOOD COUNT 5.4 K/mm3 (4.0-10.0)
[2020-04-30 15:36] LABS: POTASSIUM 3.9 mmol/L (3.5-5.1)
[2020-04-30 15:38] LABS: CALCIUM 9.5 mg/dL (8.5-10.1)
[2020-04-30 15:39] LABS: ALBUMIN 4.1 g/dl (3.4-5.0); BLOOD UREA NITROGEN 18.4 mg/dL (7-18)
[2020-04-30 15:42] LABS: CREATININE 0.7 mg/dL (0.55-1.3)
[2020-04-30 15:43] LABS: BILIRUBIN,TOTAL 0.2 mg/dL (0.2-1); TOT PROT 7.7 g/dl (6.4-8.2)
[2020-04-30 17:52] VITALS: TEMP 98.4
[2020-04-30 18:10] VITALS: BP 147/70; PULSE 87
== END 2020-04-30 15:30 | disposition home or self-care (01) ==
LOC: JONCCHEMO 07:45
PROVIDERS: ATTEND Internal Medicine Hematology & Oncology
PROC: 3E033GC Introduction of Other Therapeutic Substance into Peripheral Vein, Percutaneous Approach (ICD-10-PCS; principal; 2020-04-30)
DX: C50.919 Malignant neoplasm of unspecified site of unspecified female breast (principal); M85.80 Other specified disorders of bone density and structure, unspecified site
CPT/HCPCS: 36415; 80053; 85025; 96365; J3489

== ENCOUNTER → 2020-05-01 | Day surgery (SDC) | payer BC ==
[2020-05-01 12:42] LABS: INR 1.04 (0.83-1.09); PROTHROMBIN TIME (PATIENT) 12.8 SEC (9.7-13.0)
[2020-05-01 14:37] VITALS: BP 163/83; PULSE 94
== END | disposition home or self-care (01) ==
LOC: JRADIR 11:56
PROVIDERS: ATTEND Internal Medicine Hematology & Oncology
PROC: 0JPT0WZ Removal of Totally Implantable Vascular Access Device from Trunk Subcutaneous Tissue and Fascia, Open Approach (ICD-10-PCS; principal; 2020-05-01)
DX: Z45.2 Encounter for adjustment and management of vascular access device (principal); C50.919 Malignant neoplasm of unspecified site of unspecified female breast
CPT/HCPCS: 36415; 36590; 85610

== ENCOUNTER 2020-12-25 04:20 | Day surgery (SDC) | payer BC ==
[2020-12-23 14:45] VITALS: BMI 26.9
[2020-12-25] MEDS ORDERED: TRIAMCINOLONE ACET 40MG/1ML VIAL ONE (07:30)
[2020-12-25] MEDS ORDERED: BUPIVACAINE HCL/PF 0.5% (5MG/ML) 10 ML VIAL ONE (07:53)
[2020-12-25] MEDS ORDERED: LIDOCAINE HCL 1% PRESERVATIVE FREE - 30ML VIAL IJ ONE ×2 (08:59)
[2020-12-25] MEDS ORDERED: IOHEXOL 180 MG/1 ML ML IJ ONE (09:00)
[2020-12-25] MEDS ORDERED: TRIAMCINOLONE ACET 40MG/1ML VIAL IM ONE (09:02)
[2020-12-25] MEDS ORDERED: BUPIVACAINE HCL/PF 0.5% (5MG/ML) 10 ML VIAL IJ ONE ×2 (09:02)
[2020-12-25 10:05] VITALS: BP 139/71; PULSE 81; TEMP 98.1
== END 2020-12-25 10:05 | disposition home or self-care (01) ==
LOC: JASU-SURG 04:20
PROVIDERS: ATTEND Pain Medicine Pain Medicine
PROC: 3E0U3BZ Introduction of Anesthetic Agent into Joints, Percutaneous Approach (ICD-10-PCS; 2020-12-25)
PROC: 3E0U33Z Introduction of Anti-inflammatory into Joints, Percutaneous Approach (ICD-10-PCS; principal; 2020-12-25 08:15)
DX: M53.3 Sacrococcygeal disorders, not elsewhere classified (principal)
CPT/HCPCS: 76000-TC-FY

== ENCOUNTER 2021-07-06 04:29 | Day surgery (SDC) | payer BC ==
[2021-07-01 13:44] VITALS: BMI 26.9
[2021-07-06] MEDS ORDERED: IOHEXOL 180 MG/1 ML ML IJ ONE ×2 (08:51→08:54)
[2021-07-06] MEDS ORDERED: LIDOCAINE HCL 1% PRESERVATIVE FREE - 30ML VIAL IJ ONE ×3 (08:52→08:54)
[2021-07-06] MEDS ORDERED: BUPIVACAINE HCL/PF 0.5% (5MG/ML) 10 ML VIAL IJ ONE ×2 (08:52→08:54)
[2021-07-06] MEDS ORDERED: TRIAMCINOLONE ACETONIDE 40 MG/ML 10 ML VIAL IJ ONE ×2 (08:53→08:54)
[2021-07-06 09:40] VITALS: BP 123/70; PULSE 93; TEMP 97.5
== END 2021-07-06 09:43 | disposition home or self-care (01) ==
LOC: JASU-SURG 04:29
PROVIDERS: ATTEND Pain Medicine Pain Medicine
PROC: 3E0U3BZ Introduction of Anesthetic Agent into Joints, Percutaneous Approach (ICD-10-PCS; 2021-07-06)
PROC: 3E0U33Z Introduction of Anti-inflammatory into Joints, Percutaneous Approach (ICD-10-PCS; principal; 2021-07-06 10:00)
DX: M53.3 Sacrococcygeal disorders, not elsewhere classified (principal); I10 Essential (primary) hypertension
CPT/HCPCS: 76000-TC-FY

== ENCOUNTER 2021-09-24 04:04 | Day surgery (SDC) | payer BC ==
[2021-09-22 09:07] VITALS: BMI 28.3
[2021-09-24] MEDS ORDERED: DEXAMETHASONE SOD PHOSPHATE 10 MG/1 ML VIAL ONE (07:21)
[2021-09-24] MEDS ORDERED: LIDOCAINE HCL/PF 1% SDV 5ML VIAL ONE (07:21)
[2021-09-24] MEDS ORDERED: SODIUM CHLORIDE 0.9% P/F 10 ML VIAL IJ ONE (07:45)
[2021-09-24] MEDS ORDERED: LIDOCAINE 1% P/F 10 MG/ML VIAL INF ONE (09:43)
[2021-09-24] MEDS ORDERED: DEXAMETHASONE SOD PHOSPHATE 10 MG/1 ML VIAL IM ONE (09:44)
[2021-09-24] MEDS ORDERED: IOHEXOL 180 MG/1 ML ML IJ ONE (09:46)
[2021-09-24 10:29] VITALS: BP 143/72; PULSE 79; RESP 16; TEMP 98.7
== END 2021-09-24 10:45 | disposition home or self-care (01) ==
LOC: JASU-SURG 04:04
PROVIDERS: ATTEND Pain Medicine Pain Medicine
PROC: 3E0R33Z Introduction of Anti-inflammatory into Spinal Canal, Percutaneous Approach (ICD-10-PCS; 2021-09-24)
PROC: 3E0R3BZ Introduction of Anesthetic Agent into Spinal Canal, Percutaneous Approach (ICD-10-PCS; principal; 2021-09-24 08:45)
DX: M54.16 Radiculopathy, lumbar region (principal)
CPT/HCPCS: 76000-TC-FY; J1100

== ENCOUNTER 2021-11-12 07:20 | Day surgery (SDC) | payer BC ==
[2021-11-12] MEDS ORDERED: ZOLEDRONIC ACID/MAN/WATER 5 MG/100 ML INFUS..BTL IVPB ONE (10:00)
[2021-11-12 15:36] VITALS: BP 137/60; PULSE 89; RESP 20; TEMP 98.2
== END 2021-11-12 11:30 | disposition home or self-care (01) ==
LOC: JONCCHEMO 07:20
PROVIDERS: ATTEND Internal Medicine Hematology & Oncology
PROC: 3E033GC Introduction of Other Therapeutic Substance into Peripheral Vein, Percutaneous Approach (ICD-10-PCS; principal; 2021-11-12)
DX: C50.912 Malignant neoplasm of unspecified site of left female breast (principal); Z17.0 Estrogen receptor positive status [ER+]
CPT/HCPCS: 96365; J3489